=== PATIENT | female | born 1990 | race Asian ===

== ENCOUNTER 2021-03-30 21:51 | Emergency (ER) | payer MEDICAID ==
[~2021-03-30] VITALS: Ht 157.5 cm; Wt 77.3 kg
[2021-03-30 21:55] VITALS: BP 132/92
[2021-03-30] MEDS ORDERED: HYDROcodone/acetaminophen 10/325mg tab PO ONE (22:20)
[2021-03-30 22:27] LABS: CLARITY,URINE CLEAR (Clear); COLOR,URINE YELLOW (Yellow); GLUCOSE, URINE NEGATIVE (Neg); KETONES,URINE NEGATIVE (Neg); LEUKOCYTE ESTERASE ,URINE TRACE (Neg); NITRITES, URINE NEGATIVE (Neg); OCCULT BLOOD,URINE LARGE (Neg); PROTEIN,URINE NEGATIVE (Neg); UROBILINOGEN,URINE 0.2 E.U/dL (0.2-1.0)
[2021-03-30] MEDS ORDERED: HYDR-3972 PO (22:29)
[2021-03-30 22:31] LABS: UA COLLECTION TYPE VOIDED
[2021-03-30 22:32] LABS: BACTERIA,URINE NONE SEEN /HPF (Neg); SQUAMOUS EPITHELIAL CELL,UR FEW /LPF (FEW); WBC,URINE 0-4 /HPF (0-4)
== END 2021-03-30 22:34 | disposition home or self-care (01) ==
LOC: ER 22:00
DX: M54.59 Other low back pain (principal)
CPT/HCPCS: 81001; 87088; 99283